=== PATIENT | male | born 1950 | race Caucasian/White ===

== ENCOUNTER 2017-01-10 10:30 | Emergency (ER) | payer MEDICARE, OTHER ==
[~2017-01-10] VITALS: Ht 177.8 cm; Wt 95.3 kg
[~2017-01-10 10:30] MED LIST: AGM875T; AMOX400T12; CYCL-97; HCT25T
[2017-01-10] MEDS ORDERED: ALPR0.5T7 (10:47)
--- NOTE | 2017-01-10 11:27 | ED Psychosocial ---
General Chief Complaint: General Problems/Pain Stated Complaint: GENERAL CONCERNS Nursing Triage Note: TAMB TO ED PER EMS WITH C/O DEPRESSION SINCE 2010 FOR LAST 2 WEEKS NOT FELT LIKE COOKING TO EAT. REPORTS NEEDS SOMEONE TO COOK SO HE CAN GET BACK ON HIS FEET. DENIES WANTING TO HARM SELF. JUST NEEDS SOMEONE TO COOK FOR HIM Source: patient, family (son) Exam Limitations: no limitations History of Present Illness Time seen by provider: 11:24 Initial Comments 66-year-old male patient presents to the emergency department with complaints of depression. Patient states he has suffered from depression since April 2011 when his son drowned. Patient reports he used to take Zoloft and Xanax. States he has not been on Zoloft for quite some time. Reports he is recently been under increased stress due to separation from his , sister having heart surgery, and recent birthday of his son as well as himself. Patient states he drinks 6 or more 12 ounce cans of beer per day and has done this for several years. Patient does take Xanax 0.5 mg once daily for anxiety. Approximately one year ago he was admitted to the hospital in [place] for seizures from stopping Zoloft, Xanax, and alcohol without tapering. Patient denies suicidal or homicidal ideation. Patient states he has not had anything solid to eat for 2 weeks. States he is only been drinking alcohol. Has had increased weakness of the last 2 weeks. Son is present at the time of visit. Patient states he is wanting help to stop drinking and help with his depression. States his depression is the "worst it has ever been." Timing/Duration: other (2 weeks) Severity: severe Associated Symptoms: anxiety, impaired concentration, insomnia Allergies and Home Medications Allergies Coded Allergies: NKANo Known Allergies (Unverified Allergy, Unknown, 12/04/12) Home Medications Alprazolam 0.5 Mg Tablet, #30 (Reported) Hydrochlorothiazide 25 Mg Tablet, (Reported) Nystatin 100,000 Unit/1 Ml Oral.susp, 5 ML PO QID, #200 Ref 0 Prescribed by: YOHAN NEAL on 01/10/171924 Constitutional: No chills, No diaphoresis, No dizziness, No fever, No malaise EENTM: no symptoms reported Respiratory: No cough, No short of breath, No stridor, No wheezing Cardiovascular: No chest pain, No edema, No palpitations, No syncope Gastrointestinal: see HPI, No abdominal pain, No constipation, No diarrhea, No dysphagia, No hematemesis, No heartburn, No jaundice, loss of appetite, No melena, No nausea, No vomiting Genitourinary: decreased output, No dysuria, No frequency, No hematuria, No pain Musculoskeletal: no symptoms reported Skin: no symptoms reported Psychiatric/Neurological: See HPI, Anxiety, Depressed, Denies Headache, Denies Numbness, Denies Paresthesia, Denies Seizure, Denies Tingling, Denies Tremors, Denies Weakness All Other Systems Reviewed Negative Unless Noted: Yes (Negative excepted noted.) Past Mvlsfeh-Kqkekz-Wgnihk Hx Patient Social History Alcohol Use: Regular Use (>/= 6 12-oz cans of beer/day) Recreational Drug Use: No Smoking Status: Current Someday Smoker Type Used: Cigarettes Recent Foreign Travel: No Contact w/Someone Who Travel: No Recent Infectious Disease Expo: No Recent Hopitalizations: No Immunizations Up To Date Tetanus Booster (TDap): Unknown Seasonal Allergies Seasonal Allergies: Yes (claratin for pollen) Respiratory Hx Respiratory Disorders: No Cardiovascular Hx Cardiac Disorders: No Neurological Hx Neurological Disorders: No Reproductive System Hx Reproductive Disorders: No Genitourinary Hx Genitourinary Disorders: No Gastrointestinal Hx Gastrointestinal Disorders: No Musculoskeletal Hx Musculoskeletal Disorders: No Endocrine Hx Endocrine Disorders: No HEENT HX ENT Disorders: No Loss of Vision: Denies Hearing Impairment: Denies Cancer Hx Cancer: No Psychosocial Hx Psychiatric Problems: Yes Behavioral Health Disorders: Depression Integumentary HX Skin/Integumentary Disorder: No Blood Transfusions Hx Blood Disorders: No Adverse Reaction to a Blood Tr: No Reviewed Nursing Assessment Reviewed/Agree w Nursing PMH: Yes Family Medical History Significant Family History: No Pertinent Family Hx Physical Exam Vital Signs Capillary Refill : Less Than 3 Seconds General Appearance: WD/WN, no apparent distress HEENT: PERRL/EOMI, normal ENT inspection, TMs normal, pharynx normal, other ( white coating of the tongue consistent with thrush. Oral mucosa dry.) Neck: supple, normal inspection Respiratory: lungs clear, normal breath sounds, no respiratory distress Cardiovascular: normal peripheral pulses, regular rate, rhythm, no edema, no murmur Peripheral Pulses: 2+ Dorsalis Pedis (R), 2+ Left Dors-Pedis (L), 2+ Radial Pulses (R), 2+ Radial Pulses (L) Gastrointestinal: normal bowel sounds, non tender, soft, no organomegaly, no pulsatile mass, No distended Extremities: normal inspection, no pedal edema, normal capillary refill Neurologic/Psychiatric: hitcher II-XII nml as tested, no motor/sensory deficits, alert, oriented x 3, depressed affect (extremely depressed, flat affect.) Appearance/Memory: appropriate appearance, neat, no memory impairment, impaired insight Behavior/Eye Contact: cooperative, avoids eye contact, decreased rate of speech Thoughts/Hallucinations: no apparent hallucination, obsessive Skin: normal color, warm/dry, No jaundice Progress/Results/Core Measures Results/Orders Lab Results My Orders Medications Given in ED Vital Signs/I&O Blood Pressure Mean: 117 ECG Initial ECG Impression Date: Jan 10, 2017 Initial ECG Impression Time: 12:24 Initial ECG Rate: 94 Comment Sinus rhythm with ventricular bigeminy. Left axis deviation. No STEMI noted. ECG reviewed and discussed with Dr. Salinas. Departure Communication Progress Notes All laboratory findings, diagnostic study findings, and plan for possible transfer to [facility] discussed with the patient and family. Both voice understanding and wish to proceed with possible transfer. Patient continues to deny suicidal or homicidal ideation. Does report feeling better after IV fluids and meals. Patient has had 2 full meals while in the emergency department. No nausea, vomiting, diarrhea, or abdominal pain noted while in the emergency department. Information faxed to [facility]. Will await return call. 1810 This examiner notified by staff of patient losing his balance and falling onto his buttocks. Patient reports he hit the side table with his back as he was falling. Staff reports and abrasion to the left low back. Patient denies hitting his head, loss of consciousness, neck pain, back pain, numbness, weakness, headache, dizziness, shortness of air, chest pain, seizure, vomiting, abdominal pain, or joint pain. Patient is alert and oriented 3, no acute distress. Lungs clear to auscultation, cardiovascular regular rate and rhythm no murmur. HEENT normocephalic, atraumatic, EOMs intact, pharynx normal. White coating of the tongue consistent with oral candidiasis. Neck supple, trachea midline, nontender, negative midline vertebral tenderness or step-off. Back shows a very superficial abrasion to the left low back without active bleeding or ecchymosis. No vertebral tenderness noted. No vertebral step-off noted. Chest is negative for deformity, ecchymosis, or swelling. Abdomen soft , nontender, positive bowel sounds. Extremities show no evidence of tenderness , ecchymosis, swelling, or deformity. Pulses are 2+ bilaterally throughout. We 'll continue to monitor patient at this time. 1845 return call excepted from [facility]. Dr. Heard accepts patient to their facility. Son requesting to transfer patient by private vehicle. Okay to transfer patient by private vehicle as patient is not suicidal or homicidal.. Patient case discussed with Dr. Salinas, he agrees with the plan of care. Impression Impression: Primary Impression: Severe major depression Additional Impressions: Hyponatremia Volume depletion Alcohol dependence Oral candidiasis Transfer Transfer Notes Dr. Heard accepts patient to his behavioral health service. Per staff, no doc to doc required by their facility. Transfer Time: 18:45 Transfer Facility: [facility] in [place], [place] Method of Transfer: Private Vehicle Departure-Patient Inst. Referrals: ALFREDO COLE DO (PCP/Family) Primary Care Physician Scripts Nystatin (Nystatin) 100,000 Unit/1 Ml Oral.susp 5 ML PO QID, #200 ML 0 Refills Prov: YOHAN NEAL 01/10/17 YOHAN NEAL Jan 10, 2017 11:27
[2017-01-10] MEDS ORDERED: NS IV 1000 ML 1,000 ML IV ONE ×2 (11:55→13:03)
[2017-01-10] MEDS ORDERED: ALPRAZolam 0.25 MG (XANAX) TAB PO ONE (12:15)
[2017-01-10 12:16] LABS: LYMPHOCYTES % (AUTO) 13 % (12-44); MEAN CORPUSCULAR HEMOGLOBIN 35 PG (25-34); MEAN CORPUSCULAR HGB CONC 37 G/DL (32-36); MEAN CORPUSCULAR VOLUME 93 FL (80-99); NEUTROPHILS % (AUTO) 67 % (42-75); PLATELET COUNT 163 10^3/uL (130-400); RED BLOOD COUNT 4.51 10^6/uL (4.35-5.85); RED CELL DISTRIBUTION WIDTH 12.1 % (10.0-14.5); WHITE BLOOD COUNT 7.1 10^3/uL (4.3-11.0)
[2017-01-10 12:17] LABS: BASOPHILS % (AUTO) 0 % (0-10); EOSINOPHILS % (AUTO) 0 % (0-10); LYMPHOCYTES # (AUTO) 0.9 X 10^3 (1.0-4.0); MONOCYTES # (AUTO) 1.4 X 10^3 (0.0-1.0); MONOCYTES % (AUTO) 20 % (0-12); NEUTROPHILS # (AUTO) 4.8 X 10^3 (1.8-7.8)
[2017-01-10 12:35] LABS: ALANINE AMINOTRANSFERASE 129 U/L (0-55); ALBUMIN 4.1 G/DL (3.2-4.5); ANION GAP 14 MMOL/L (5-14); ASPARTATE AMINO TRANSFERASE 97 U/L (5-34); BILIRUBIN,TOTAL 3.9 MG/DL (0.1-1.0); BLOOD UREA NITROGEN 9 MG/DL (7-18); BUN/CREATININE RATIO 12; CALCIUM 9.4 MG/DL (8.5-10.1); CARBON DIOXIDE 30 MMOL/L (21-32); CHLORIDE 83 MMOL/L (98-107); CREATININE SERUM 0.78 MG/DL (0.60-1.30); GFR ESTIMATED > 60; GLUCOSE 97 MG/DL (70-105); POTASSIUM 3.3 MMOL/L (3.6-5.0); SODIUM 127 MMOL/L (135-145); TOTAL PROTEIN 6.9 G/DL (6.4-8.2)
[2017-01-10 12:36] LABS: ACETAMINOPHEN < 10 UG/ML (10-30); ALCOHOL < 10 MG/DL (<10)
[2017-01-10 12:37] LABS: KETONES,URINE 3+ (NEGATIVE); LEUKOCYTE ESTERASE ,URINE 1+ (NEGATIVE); NITRITE,URINE NEGATIVE (NEGATIVE); PH,URINE 8 (5-9); PROTEIN,URINE NEGATIVE (NEGATIVE); UROBILINOGEN,URINE 8 MG/DL (NORMAL)
[2017-01-10 12:46] LABS: BAND NEUTROPHILS 0 %; BASOPHILS % (MANUAL) 0 %; EOSINOPHILS % (MANUAL) 0 %; LYMPHOCYTES % (MANUAL) 14 %; NEUTROPHILS % (MANUAL) 66 %
[2017-01-10 12:51] LABS: PROTHROMBIN TIME PATIENT 13.2 SEC (12.2-14.7)
[2017-01-10 13:02] LABS: BILIRUBIN,URINE 1+ (NEGATIVE); HYALINE CASTS, URINE RARE /LPF
[2017-01-10 17:54] VITALS: BP 106/58
[2017-01-10 18:00] VITALS: BP 122/72
[2017-01-10] MEDS ORDERED: NYST1000 PO (19:25)
[2017-01-10] MEDS ORDERED: LORazepam INJ 2 MG/ML (ATIVAN) VIAL IVP ONE (20:00)
[2017-01-10] MEDS ORDERED: ONDANSETRON 4 MG (ZOFRAN) ORAL DISSOLVE TAB SL STA (20:14)
[2017-01-10] MEDS ORDERED: KCL 20 MEQ TAB (K-DUR) PO ONE (20:15)
[2017-01-10 20:26] VITALS: BP 129/84
== END 2017-01-10 20:26 ==
LOC: EDUNIT# 10:30 → ER 10:31
DX: F33.2 Major depressive disorder, recurrent severe without psychotic features (principal); E87.1 Hypo-osmolality and hyponatremia; E86.9 Volume depletion, unspecified; F10.20 Alcohol dependence, uncomplicated; B37.0 Candidal stomatitis; Z79.899 Other long term (current) drug therapy
CPT/HCPCS: 36415; 80053; 80306; 80320; 80329; 81000; 84443; 85007; 85027; 85610; 85730; 93005; 96361; 96374